=== PATIENT | male | born 1950 | race Caucasian/White ===

== ENCOUNTER 2019-11-27 16:28 | Inpatient (IN) ==
[2019-11-27] MEDS: VANCOMYCIN IV *PREMIX 1 G/200 ML BAG 1 G/200 ML PIGGYBACK IV SCH (20:19)
[2019-11-27 20:39] LABS: BASOPHILS % (AUTO) 0.2 % (0.2-1.0); EOSINOPHILS # (AUTO) 0.1 x10^3/uL (0.0-0.2); EOSINOPHILS % (AUTO) 0.9 % (0.9-2.9); HEMATOCRIT 41.3 % (42.0-54.0); HEMOGLOBIN 14.2 g/dL (13.5-18.0); LYMPHOCYTES # (AUTO) 1.1 X10^3/uL (1.3-2.9); LYMPHOCYTES % (AUTO) 10.9 % (21.0-51.0); MEAN CORPUSCULAR HEMOGLOBIN 28.5 pg (27.0-34.0); MEAN CORPUSCULAR HGB CONC 34.3 g/dL (33.0-35.0); MEAN CORPUSCULAR VOLUME 83.1 fL (80.0-100.0); MEAN PLATELET VOLUME 7.7 fL (7.4-11.0); MONOCYTES # (AUTO) 0.9 x10^3/uL (0.3-0.8); MONOCYTES % (AUTO) 8.6 % (0.0-13.0); NEUTROPHILS # (AUTO) 7.9 x10^3/uL (2.2-4.8); NEUTROPHILS % (AUTO) 79.4 % (42.0-75.0); PLATELET COUNT 337 X10^3/uL (150.0-450.0); RED BLOOD COUNT 4.97 X10^6/uL (4.7-6.0); RED CELL DISTRIBUTION WIDTH 14.9 % (11.6-16.5); WHITE BLOOD COUNT 9.9 X10^3/uL (3.6-10.0)
[2019-11-27 20:47] LABS: HEMOGLOBIN A1C 6.5 %
[2019-11-27 20:51] LABS: ALANINE AMINOTRANSFERASE 30 Units/L (12-78); ALBUMIN 2.6 g/dL (3.4-5.0); ALKALINE PHOSPHATASE 92 Units/L (46-116); ASPARTATE AMINO TRANSFERASE 23 Units/L (15-37); BLOOD UREA NITROGEN 9 mg/dL (7-18); CALCIUM 9.4 mg/dL (8.5-10.1); CARBON DIOXIDE 30.3 mmol/L (21-32); CHLORIDE 98 mmol/L (98-107); COR CA(FOR HYPOALB) 10.5 mg/dL (8.5-10.1); COR NA(FOR HYPERGLY) 139 mmol/L (136-145); CREATININE 1.38 mg/dL (0.70-1.30); SODIUM 137 mmol/L (136-145); TOTAL PROTEIN 7.6 g/dL (6.4-8.2); eGFR NON BLACK RACES 54 (>60)
[2019-11-27 21:15] VITALS: BMI 28.2
[2019-11-27] MEDS ORDERED: MAGNESIUM SULFATE 1 GRAM/100 mL PREMIX 1 GM/100 ML BAG IV PRN (21:27)
[2019-11-27] MEDS ORDERED: K-RIDER 10 MEQ/NS 100 ML 10 MEQ/100 ML BAG IV PRN (21:27)
[2019-11-27] MEDS ORDERED: POTASSIUM CHL 40 MEQ/NS 0.45% 500 ML IV PRN (21:27)
[2019-11-27] MEDS ORDERED: MICRO K EXTEN CAP 10 MEQ PO PRN (21:27)
[2019-11-27] MEDS ORDERED: KLOR-CON PO PRN (21:27)
[2019-11-27] MEDS ORDERED: POTASSIUM CHL 60 MEQ/NS 0.45% 500 ML IV PRN (21:27)
[2019-11-27] MEDS ORDERED: POTASSIUM CHLORIDE LIQ 20 MEQ UDC PO PRN (21:27)
[2019-11-27] MEDS: K-DUR TAB 20 MEQ PO PRN (22:20)
--- NOTE | 2019-11-27 23:10 | RAD ---
STUDY: FRONTAL VIEW CHESTCOMPARISON: NoneHISTORY: BUG BITE 5 DAYS AGO, STATES WORSENING PAIN, SWELLING AND REDNESSFINDINGS:There is elevation of the right hemidiaphragm.No focal consolidation is seen.The heart size is within normal limits.The mediastinum is unremarkable.There is no evidence of pleural effusion or gross pneumothorax.The trachea is midline.IMPRESSION:1. No focal consolidation is seen.2. The heart size is normal.Electronically signed by: Chaitanya Campbell (Nov 27, 2019 23:09:31)
[2019-11-28 06:25] LABS: BASOPHILS % (AUTO) 0.4 % (0.2-1.0); EOSINOPHILS # (AUTO) 0.1 x10^3/uL (0.0-0.2); EOSINOPHILS % (AUTO) 1.4 % (0.9-2.9); HEMATOCRIT 34.7 % (42.0-54.0); HEMOGLOBIN 12.2 g/dL (13.5-18.0); LYMPHOCYTES # (AUTO) 1.1 X10^3/uL (1.3-2.9); MEAN CORPUSCULAR HEMOGLOBIN 28.8 pg (27.0-34.0); MEAN CORPUSCULAR HGB CONC 35.1 g/dL (33.0-35.0); MEAN CORPUSCULAR VOLUME 82.1 fL (80.0-100.0); MEAN PLATELET VOLUME 7.4 fL (7.4-11.0); MONOCYTES # (AUTO) 1.1 x10^3/uL (0.3-0.8); MONOCYTES % (AUTO) 12.1 % (0.0-13.0); NEUTROPHILS # (AUTO) 6.8 x10^3/uL (2.2-4.8); NEUTROPHILS % (AUTO) 74.1 % (42.0-75.0); PLATELET COUNT 347 X10^3/uL (150.0-450.0); RED BLOOD COUNT 4.22 X10^6/uL (4.7-6.0); RED CELL DISTRIBUTION WIDTH 14.8 % (11.6-16.5); WHITE BLOOD COUNT 9.1 X10^3/uL (3.6-10.0)
[2019-11-28 06:41] LABS: ALANINE AMINOTRANSFERASE 28 Units/L (12-78); ALBUMIN 2.2 g/dL (3.4-5.0); ALKALINE PHOSPHATASE 78 Units/L (46-116); ASPARTATE AMINO TRANSFERASE 20 Units/L (15-37); BLOOD UREA NITROGEN 10 mg/dL (7-18); CALCIUM 9.2 mg/dL (8.5-10.1); CARBON DIOXIDE 28.1 mmol/L (21-32); CHLORIDE 102 mmol/L (98-107); COR CA(FOR HYPOALB) 10.6 mg/dL (8.5-10.1); COR NA(FOR HYPERGLY) 139 mmol/L (136-145); CREATININE 1.23 mg/dL (0.70-1.30); SODIUM 138 mmol/L (136-145); TOTAL PROTEIN 6.9 g/dL (6.4-8.2); eGFR NON BLACK RACES > 60 (>60)
[2019-11-28] MEDS ORDERED: LR 1000 ML IV 1,000 ML IV ONE (09:15)
[2019-11-28] MEDS ORDERED: FENTANYL INJ 100 mcg ONE (09:24)
[2019-11-28] MEDS ORDERED: POLYMYXIN B SULFATE ONE (09:46)
[2019-11-28] MEDS ORDERED: BACITRACIN ZINC ONE ×2 (10:06→10:09)
[2019-11-28] MEDS ORDERED: ZOFRAN INJ 4 MG VIAL IVP PRN (10:27)
[2019-11-28] MEDS ORDERED: PHENERGAN INJ 25 MG IM PRN (10:27)
[2019-11-28] MEDS ORDERED: REGLAN INJ 10 MG VIAL IVP PRN (10:27)
[2019-11-28] MEDS ORDERED: BENADRYL INJ 50 MG VIAL IVP PRN (10:27)
[2019-11-28] MEDS ORDERED: DILAUDID INJ IVP PRN (10:27)
--- NOTE | 2019-11-28 10:54 | OR.IMMED ---
Immediate Post-Op Note - Immediate Post-Op Note Pre-Op Diagnosis: cellulitis Lt hand with multiple abscesses. DM Post-Op Diagnosis: cellulitis Lt hand with multiple abscesses on the dorsal aspect extending to the fingers with necrosis . Procedure: debridement and drainage of Lt hand abscesses and skin necrosis . Surgeon/Residential Designer: Geno Specimens Removed: necrotic tissue Lt hand . Complications: none Condition: Stable (multiple tracts were packed with Iodoform . to keep the hand elevated all the times using sling .)
[2019-11-28] MEDS ORDERED: DIPRIVAN VIAL ONE (11:04)
[2019-11-28] MEDS ORDERED: XYLOCAINE 1 % (PLAIN) ONE (11:04)
[2019-11-28] MEDS ORDERED: VERSED ONE (11:04)
[2019-11-28] MEDS ORDERED: ZOFRAN INJ 4 MG VIAL ONE (11:04)
[2019-11-28] MEDS ORDERED: SUPRANE ONE (11:04)
--- NOTE | 2019-11-28 11:44 | DR.H&P ---
H&P History & Physical for Day of: H&P Date: 11/28/19 Chief Complaint Chief Complaint: Left hand insect bite and cellulitis Allergies Allergies Allergy/AdvReac Type Severity Reaction Status Date / Time No Known Drug Allergies Allergy Verified 11/24/19 06:23 History of Present Illness History of Present Illness: Pt is a 69 y/o m pmhx DMT2, GERD, admitted after fischer ving insect bite/sting(possible spider) on left hand that developed into cellulitis and multiple abscesses. This occurred 1 week(s) ago at work. The patient was previously evaluated by a primary physician. Pt has been prescribed by previous providers ED physician and pcp([facility]) antibiotics, cefdinir, bactrim, and clindamycin without improvement of bite wound, failing outpt treatment. On exam copious purulent drainage and referred to [facility] Surgery-Dr Lora. He was admitted, started on Vancomycin, and had debridement of wound this morning w/ cultures sent. Consulted for medical management. Past Medical History Past Medical History: Diabetes and GERD Past Surgical History Surgical History: Other Family History Family Medical History: Diabetes Mellitus and ID Social History Does patient currently use any type of tobacco product: No Have you used tobacco products in the last 12 months: No Type of Tobacco Use: None Does any household member use tobacco: No Alcohol Use: Rarely Drug Use: None Medications Home Medications: No Known Drug Allergies Allergy (Verified 11/24/19 06:23) CONTINUE taking the following medications acetaminophen-codeine 1 tab PO PRN PRN 11/27/19 [History] ascorbic acid (vitamin C) [Vitamin C] 500 mg PO DAILY 11/27/19 [History] cholecalciferol (vitamin D3) [Vitamin D3] 1 unit PO DAILY 11/27/19 [History] mupirocin 1 applic TOPICAL BID 11/27/19 [History] omega 2-tpa-wki-fish oil [Fish Oil] 1 cap PO DAILY 11/27/19 [History] Labs Result Diagrams: 11/28/19 05:37 11/28/19 05:37 Labs: 11/27/19 21:15 Hand - Left Gram Stain - Final 11/27/19 21:15 Hand - Left Wound Culture - Preliminary Laboratory WBC 9.1 X10^3/uL (3.6-10.0) 11/28/19 05:37 RBC 4.22 X10^6/uL (4.7-6.0) L 11/28/19 05:37 Hgb 12.2 g/dL (13.5-18.0) L D 11/28/19 05:37 Hct 34.7 % (42.0-54.0) L 11/28/19 05:37 MCV 82.1 fL (80.0-100.0) 11/28/19 05:37 MCH 28.8 pg (27.0-34.0) 11/28/19 05:37 MCHC 35.1 g/dL (33.0-35.0) H 11/28/19 05:37 RDW 14.8 % (11.6-16.5) 11/28/19 05:37 Plt Count 347 X10^3/uL (150.0-450.0) 11/28/19 05:37 MPV 7.4 fL (7.4-11.0) 11/28/19 05:37 Neut % (Auto) 74.1 % (42.0-75.0) 11/28/19 05:37 Lymph % (Auto) 12.0 % (21.0-51.0) L 11/28/19 05:37 [place] % (Auto) 12.1 % (0.0-13.0) 11/28/19 05:37 Eos % (Auto) 1.4 % (0.9-2.9) 11/28/19 05:37 Baso % (Auto) 0.4 % (0.2-1.0) 11/28/19 05:37 Neut # (Auto) 6.8 x10^3/uL (2.2-4.8) H 11/28/19 05:37 Lymph # (Auto) 1.1 X10^3/uL (1.3-2.9) L 11/28/19 05:37 [place] # (Auto) 1.1 x10^3/uL (0.3-0.8) H 11/28/19 05:37 Eos # (Auto) 0.1 x10^3/uL (0.0-0.2) 11/28/19 05:37 Baso # (Auto) 0.0 X10^3/uL (0.0-0.1) 11/28/19 05:37 Absolute Nucleated RBC 0.0 /100WBC 11/28/19 05:37 Sodium 138 mmol/L (136-145) 11/28/19 05:37 Corrected Sodium 139 mmol/L (136-145) 11/28/19 05:37 Potassium 3.6 mmol/L (3.5-5.1) 11/28/19 05:37 Chloride 102 mmol/L (98-107) 11/28/19 05:37 Carbon Dioxide 28.1 mmol/L (21-32) 11/28/19 05:37 BUN 10 mg/dL (7-18) 11/28/19 05:37 Creatinine 1.23 mg/dL (0.70-1.30) 11/28/19 05:37 Est GFR (MDRD) Af Amer > 60 (>60) 11/28/19 05:37 Est GFR (MDRD) Non-Af > 60 (>60) 11/28/19 05:37 Glucose 161 mg/dL (65-99) H 11/28/19 05:37 POC Glucose (mg/dL) 162 mg/dL (65-99) H 11/28/19 05:28 Hemoglobin A1c 6.5 % 11/27/19 19:57 Calcium 9.2 mg/dL (8.5-10.1) 11/28/19 05:37 Corrected Calcium 10.6 mg/dL (8.5-10.1) H 11/28/19 05:37 Magnesium 2.0 mg/dL (1.7-2.9) 11/27/19 19:57 Total Bilirubin 0.50 mg/dL (0.2-1.0) 11/28/19 05:37 AST 20 Units/L (15-37) 11/28/19 05:37 ALT 28 Units/L (12-78) 11/28/19 05:37 Alkaline Phosphatase 78 Units/L (46-116) 11/28/19 05:37 Total Protein 6.9 g/dL (6.4-8.2) 11/28/19 05:37 Albumin 2.2 g/dL (3.4-5.0) L 11/28/19 05:37 Globulin 4.7 g/dL (2.5-4.5) H 11/28/19 05:37 Albumin/Globulin Ratio 0.5 Ratio (1.1-2.1) L 11/28/19 05:37 Tissue Pathology To follow 11/28/19 10:53 Review of Systems Constitutional: denies Fever and Chills Eyes: No Symptoms Reported ENT: No Symptoms Reported Respiratory: No Symptoms Reported Cardiovascular: No Symptoms Reported Gastrointestinal: No Symptoms Reported Genitourinary: No Symptoms Reported Musculoskeletal: Hand Pain (Left) Skin: Wound (Left hand:Erythematous, Edema, tenderness, copious purulent discharge ) Neurological: No Symptoms Reported Physical Exam Vital Signs: Temperature 97.7 F Pulse Rate [Right Radial] 88 Pulse Rate 70 Respiratory Rate 18 Blood Pressure [Right Arm] 141/79 Blood Pressure 153/86 O2 Sat by Pulse Oximetry 97 Oriented: Normal Eyes: Normal Ear: Normal Respiratory: Clear Throughout Cardiovascular: Normal Auscultation: Bowel Sounds: Normal Palpation: Normal Tenderness: Normal Skin: Wound (Left hand:Erythematous, Edema, tenderness, copious purulent discharge ) Musculoskeletal: Hand (Left hand) Psychiatric: Normal Speech Pattern: Clear Assessment/Plan (1) Cellulitis of hand, left: Status: Acute Plan: S/p debridement (11/27) Continue IV Vancomycin (2) Type 2 diabetes mellitus: Status: Acute Plan: Restart home metformin Review H&P Reviewed: Yes Patient was examined?: Yes
[2019-11-28] MEDS ORDERED: NS 250 ML IV 250 ML IV ONE (12:21)
[2019-11-28] MEDS: K-DUR TAB 20 MEQ PO PRN (12:32)
[2019-11-28] MEDS: VANCOMYCIN IV *PREMIX 1 G/200 ML BAG 1 G/200 ML PIGGYBACK IV SCH ×2 (12:32→20:56)
[2019-11-28] MEDS: PERCOCET TAB 5/325 MG PO PRN ×2 (16:24→21:25)
[2019-11-29 06:38] LABS: BASOPHILS % (AUTO) 0.5 % (0.2-1.0); EOSINOPHILS # (AUTO) 0.2 x10^3/uL (0.0-0.2); EOSINOPHILS % (AUTO) 1.9 % (0.9-2.9); HEMATOCRIT 38.5 % (42.0-54.0); HEMOGLOBIN 13.2 g/dL (13.5-18.0); LYMPHOCYTES # (AUTO) 1.2 X10^3/uL (1.3-2.9); LYMPHOCYTES % (AUTO) 15.8 % (21.0-51.0); MEAN CORPUSCULAR HEMOGLOBIN 28.3 pg (27.0-34.0); MEAN CORPUSCULAR HGB CONC 34.3 g/dL (33.0-35.0); MEAN CORPUSCULAR VOLUME 82.7 fL (80.0-100.0); MEAN PLATELET VOLUME 7.4 fL (7.4-11.0); MONOCYTES # (AUTO) 0.9 x10^3/uL (0.3-0.8); MONOCYTES % (AUTO) 11.2 % (0.0-13.0); NEUTROPHILS # (AUTO) 5.6 x10^3/uL (2.2-4.8); NEUTROPHILS % (AUTO) 70.6 % (42.0-75.0); PLATELET COUNT 328 X10^3/uL (150.0-450.0); RED BLOOD COUNT 4.66 X10^6/uL (4.7-6.0); RED CELL DISTRIBUTION WIDTH 14.8 % (11.6-16.5); WHITE BLOOD COUNT 7.9 X10^3/uL (3.6-10.0)
[2019-11-29 06:46] LABS: BLOOD UREA NITROGEN 12 mg/dL (7-18); CARBON DIOXIDE 26.6 mmol/L (21-32); CHLORIDE 103 mmol/L (98-107); COR NA(FOR HYPERGLY) 138 mmol/L (136-145); CREATININE 1.12 mg/dL (0.70-1.30); SODIUM 137 mmol/L (136-145); eGFR NON BLACK RACES > 60 (>60)
[2019-11-29] MEDS ORDERED: GLUCOPHAGE ONE (07:45)
[2019-11-29] MEDS: VANCOMYCIN IV *PREMIX 1 G/200 ML BAG 1 G/200 ML PIGGYBACK IV SCH (08:00)
[2019-11-29] MEDS: PERCOCET TAB 5/325 MG PO PRN ×3 (08:00→20:09)
[2019-11-29] MEDS: GLUCOPHAGE PO SCH (08:00)
[2019-11-29] MEDS: PriLOSEC PO SCH (08:00)
[2019-11-29] MEDS ORDERED: PHARMACY COMMENT IV NR (08:30)
--- NOTE | 2019-11-29 10:38 | PCM.PROG ---
Progress Note Progress Note for Day of Date of Exam: 11/29/19 Subjective Subjective: Pt is a 69 y/o m pmhx DMT2, GERD, admitted for left hand cellulitis and debridement. He is feeling better this morning. His hand is wrapped in a wound dressing. Gen Surg will see him this morning. Labs/imaging: Wbc 7.9, Hgb 13.2, Plt 328, Na 137, K 3.9, Cr 1.12, Gluc 142. A1c 6.4. Wound Culture +MRSA. Will continue IV Vancomycin. Continue to monitor and follow up labs in the morning. Past Medical Family Social History Past Med/Fam/Surg Hx: No changes since H&P Allergies: Allergies No Known Drug Allergies Allergy (Verified 11/24/19 06:23) Review of Systems ROS: No change since H&P Vital Signs and I&O's Vital Signs: Temperature 99.1 F Pulse Rate [Right Radial] 78 Pulse Rate 70 Respiratory Rate 20 Blood Pressure [Right Arm] 117/75 Blood Pressure 153/86 O2 Sat by Pulse Oximetry 97 Intake and Output: Intake & Output 11/26/19 11/27/19 11/28/19 11/29/19 23:59 23:59 23:59 23:59 Intake Total 1202 / 1202 1470 / 1470 840 / 840 Output Total 245 / 245 Balance 1202 / 1202 1225 / 1225 840 / 840 Physical Exam Oriented: Normal Eyes: Normal Ear: Normal Cardiovascular: Normal Auscultation: Bowel Sounds: Normal Tenderness: Normal Skin: Wound (Left hand wrapped in wound dressing) Musculoskeletal: Hand (Left hand) Psychiatric: Normal Mood Description: Calm Speech Pattern: Clear and Appropriate Laboratory and Diagnostics Result Diagrams: 11/29/19 05:15 11/29/19 05:15 Labs: 11/27/19 21:15 Hand - Left Gram Stain - Final 11/27/19 21:15 Hand - Left Wound Culture - Final Methicillin Resis Staph Aureus Laboratory WBC 7.9 X10^3/uL (3.6-10.0) 11/29/19 05:15 RBC 4.66 X10^6/uL (4.7-6.0) L 11/29/19 05:15 Hgb 13.2 g/dL (13.5-18.0) L 11/29/19 05:15 Hct 38.5 % (42.0-54.0) L 11/29/19 05:15 MCV 82.7 fL (80.0-100.0) 11/29/19 05:15 MCH 28.3 pg (27.0-34.0) 11/29/19 05:15 MCHC 34.3 g/dL (33.0-35.0) 11/29/19 05:15 RDW 14.8 % (11.6-16.5) 11/29/19 05:15 Plt Count 328 X10^3/uL (150.0-450.0) 11/29/19 05:15 MPV 7.4 fL (7.4-11.0) 11/29/19 05:15 Neut % (Auto) 70.6 % (42.0-75.0) 11/29/19 05:15 Lymph % (Auto) 15.8 % (21.0-51.0) L 11/29/19 05:15 [place] % (Auto) 11.2 % (0.0-13.0) 11/29/19 05:15 Eos % (Auto) 1.9 % (0.9-2.9) 11/29/19 05:15 Baso % (Auto) 0.5 % (0.2-1.0) 11/29/19 05:15 Neut # (Auto) 5.6 x10^3/uL (2.2-4.8) H 11/29/19 05:15 Lymph # (Auto) 1.2 X10^3/uL (1.3-2.9) L 11/29/19 05:15 [place] # (Auto) 0.9 x10^3/uL (0.3-0.8) H 11/29/19 05:15 Eos # (Auto) 0.2 x10^3/uL (0.0-0.2) 11/29/19 05:15 Baso # (Auto) 0.0 X10^3/uL (0.0-0.1) 11/29/19 05:15 Absolute Nucleated RBC 0.0 /100WBC 11/29/19 05:15 Sodium 137 mmol/L (136-145) 11/29/19 05:15 Corrected Sodium 138 mmol/L (136-145) 11/29/19 05:15 Potassium 3.9 mmol/L (3.5-5.1) 11/29/19 05:15 Chloride 103 mmol/L (98-107) 11/29/19 05:15 Carbon Dioxide 26.6 mmol/L (21-32) 11/29/19 05:15 BUN 12 mg/dL (7-18) 11/29/19 05:15 Creatinine 1.12 mg/dL (0.70-1.30) 11/29/19 05:15 Est GFR (MDRD) Af Amer > 60 (>60) 11/29/19 05:15 Est GFR (MDRD) Non-Af > 60 (>60) 11/29/19 05:15 Glucose 142 mg/dL (65-99) H 11/29/19 05:15 POC Glucose (mg/dL) 152 mg/dL (65-99) H 11/29/19 06:01 Hemoglobin A1c 6.4 % 11/28/19 05:37 Calcium 9.0 mg/dL (8.5-10.1) 11/29/19 05:15 Corrected Calcium 10.6 mg/dL (8.5-10.1) H 11/28/19 05:37 Magnesium 2.0 mg/dL (1.7-2.9) 11/27/19 19:57 Total Bilirubin 0.50 mg/dL (0.2-1.0) 11/28/19 05:37 AST 20 Units/L (15-37) 11/28/19 05:37 ALT 28 Units/L (12-78) 11/28/19 05:37 Alkaline Phosphatase 78 Units/L (46-116) 11/28/19 05:37 Total Protein 6.9 g/dL (6.4-8.2) 11/28/19 05:37 Albumin 2.2 g/dL (3.4-5.0) L 11/28/19 05:37 Globulin 4.7 g/dL (2.5-4.5) H 11/28/19 05:37 Albumin/Globulin Ratio 0.5 Ratio (1.1-2.1) L 11/28/19 05:37 Tissue Pathology To follow 11/28/19 10:53 Plan (1) Cellulitis of hand, left: Status: Acute Plan: S/p debridement (4/24) Wound Culture:+MRSA Continue IV Vancomycin (2) Type 2 diabetes mellitus: Status: Acute Plan: Restart home metformin
--- NOTE | 2019-11-29 18:43 | DR.PROGNOT ---
Hospital Progress Notes - Progress Note for Day of: Progress Note Date: 11/29/19 - Chief Complaint Chief Complaint: moderate pain Lt hand . still having moderate drainage . C&S showed MRSA - Past Medical Family Social History Past Med/Fam/Surg Hx: No changes since H&P Allergies: Allergies No Known Drug Allergies Allergy (Verified 11/24/19 06:23) - Review Of Systems ROS: No change since H&P - Vital Signs Vital Signs: Temperature 98.5 F Pulse Rate [Right Radial] 77 Pulse Rate 70 Respiratory Rate 20 Blood Pressure [Right Arm] 148/76 Blood Pressure 153/86 O2 Sat by Pulse Oximetry 97 - Physical Exam Oriented: Normal Eyes: Normal Ear: Normal Cardiovascular: Normal GI:Auscultation: Normal GI:Palpation: Normal GI: Tenderness: Normal Skin: Wound (less edema and erythema .. intact ROM of all fingers and wrist ) Musculoskeletal: Hand (Left hand) Psychiatric: Normal Mood Description: Calm Speech Pattern: Clear, Appropriate - Laboratory and Diagnostics Result Diagrams: 11/29/19 05:15 11/29/19 05:15 Labs: 11/27/19 21:15 Hand - Left Gram Stain - Final 11/27/19 21:15 Hand - Left Wound Culture - Final Methicillin Resis Staph Aureus Laboratory WBC 7.9 X10^3/uL (3.6-10.0) 11/29/19 05:15 RBC 4.66 X10^6/uL (4.7-6.0) L 11/29/19 05:15 Hgb 13.2 g/dL (13.5-18.0) L 11/29/19 05:15 Hct 38.5 % (42.0-54.0) L 11/29/19 05:15 MCV 82.7 fL (80.0-100.0) 11/29/19 05:15 MCH 28.3 pg (27.0-34.0) 11/29/19 05:15 MCHC 34.3 g/dL (33.0-35.0) 11/29/19 05:15 RDW 14.8 % (11.6-16.5) 11/29/19 05:15 Plt Count 328 X10^3/uL (150.0-450.0) 11/29/19 05:15 MPV 7.4 fL (7.4-11.0) 11/29/19 05:15 Neut % (Auto) 70.6 % (42.0-75.0) 11/29/19 05:15 Lymph % (Auto) 15.8 % (21.0-51.0) L 11/29/19 05:15 [place] % (Auto) 11.2 % (0.0-13.0) 11/29/19 05:15 Eos % (Auto) 1.9 % (0.9-2.9) 11/29/19 05:15 Baso % (Auto) 0.5 % (0.2-1.0) 11/29/19 05:15 Neut # (Auto) 5.6 x10^3/uL (2.2-4.8) H 11/29/19 05:15 Lymph # (Auto) 1.2 X10^3/uL (1.3-2.9) L 11/29/19 05:15 [place] # (Auto) 0.9 x10^3/uL (0.3-0.8) H 11/29/19 05:15 Eos # (Auto) 0.2 x10^3/uL (0.0-0.2) 11/29/19 05:15 Baso # (Auto) 0.0 X10^3/uL (0.0-0.1) 11/29/19 05:15 Absolute Nucleated RBC 0.0 /100WBC 11/29/19 05:15 Sodium 137 mmol/L (136-145) 11/29/19 05:15 Corrected Sodium 138 mmol/L (136-145) 11/29/19 05:15 Potassium 3.9 mmol/L (3.5-5.1) 11/29/19 05:15 Chloride 103 mmol/L (98-107) 11/29/19 05:15 Carbon Dioxide 26.6 mmol/L (21-32) 11/29/19 05:15 BUN 12 mg/dL (7-18) 11/29/19 05:15 Creatinine 1.12 mg/dL (0.70-1.30) 11/29/19 05:15 Est GFR (MDRD) Af Amer > 60 (>60) 11/29/19 05:15 Est GFR (MDRD) Non-Af > 60 (>60) 11/29/19 05:15 Glucose 142 mg/dL (65-99) H 11/29/19 05:15 POC Glucose (mg/dL) 139 mg/dL (65-99) H 11/29/19 16:31 Hemoglobin A1c 6.4 % 11/28/19 05:37 Calcium 9.0 mg/dL (8.5-10.1) 11/29/19 05:15 Corrected Calcium 10.6 mg/dL (8.5-10.1) H 11/28/19 05:37 Magnesium 2.0 mg/dL (1.7-2.9) 11/27/19 19:57 Total Bilirubin 0.50 mg/dL (0.2-1.0) 11/28/19 05:37 AST 20 Units/L (15-37) 11/28/19 05:37 ALT 28 Units/L (12-78) 11/28/19 05:37 Alkaline Phosphatase 78 Units/L (46-116) 11/28/19 05:37 Total Protein 6.9 g/dL (6.4-8.2) 11/28/19 05:37 Albumin 2.2 g/dL (3.4-5.0) L 11/28/19 05:37 Globulin 4.7 g/dL (2.5-4.5) H 11/28/19 05:37 Albumin/Globulin Ratio 0.5 Ratio (1.1-2.1) L 11/28/19 05:37 Tissue Pathology To follow 11/28/19 10:53 - Assessment and Plan 1: multiple Lt hand abscesses positive for MRSA .. S/P debridement and drainage with packing . DM . same IV Vancomycine and local care .. hand elevation . - Problem Patient Problems: Patient Problems Type 2 diabetes mellitus (Acute) E11.9 Cellulitis of hand, left (Acute) L03.114
[2019-11-29 21:00] LABS: CREATININE 1.1 mg/dL (0.70-1.30); VANCOMYCIN,TROUGH 6.1 ug/mL (15-20)
[2019-11-29] MEDS ORDERED: PHARMACY CONSULT - VANCOMYCIN XX SCH (21:00)
[2019-11-29] MEDS ORDERED: VANCOMYCIN HCL ONE ×2 (22:05)
[2019-11-29] MEDS ORDERED: D5W 250 ML IV 250 ML IV ONE (22:05)
[2019-11-29] MEDS: VANCOMYCIN HCL 250 MG, VANCOMYCIN HCL 1 G in D5W 250 ML IV 250 ML IV SCH (22:20)
[2019-11-30] MEDS: PERCOCET TAB 5/325 MG PO PRN ×6 (05:59→21:45)
[2019-11-30 06:03] LABS: BASOPHILS # (AUTO) 0.1 X10^3/uL (0.0-0.1); BASOPHILS % (AUTO) 0.9 % (0.2-1.0); EOSINOPHILS # (AUTO) 0.2 x10^3/uL (0.0-0.2); EOSINOPHILS % (AUTO) 2.8 % (0.9-2.9); HEMATOCRIT 38.8 % (42.0-54.0); HEMOGLOBIN 13.4 g/dL (13.5-18.0); LYMPHOCYTES # (AUTO) 1.7 X10^3/uL (1.3-2.9); LYMPHOCYTES % (AUTO) 23.6 % (21.0-51.0); MEAN CORPUSCULAR HEMOGLOBIN 28.5 pg (27.0-34.0); MEAN CORPUSCULAR HGB CONC 34.5 g/dL (33.0-35.0); MEAN CORPUSCULAR VOLUME 82.8 fL (80.0-100.0); MEAN PLATELET VOLUME 7.3 fL (7.4-11.0); MONOCYTES # (AUTO) 0.8 x10^3/uL (0.3-0.8); MONOCYTES % (AUTO) 10.2 % (0.0-13.0); NEUTROPHILS # (AUTO) 4.6 x10^3/uL (2.2-4.8); NEUTROPHILS % (AUTO) 62.5 % (42.0-75.0); PLATELET COUNT 351 X10^3/uL (150.0-450.0); RED BLOOD COUNT 4.68 X10^6/uL (4.7-6.0); RED CELL DISTRIBUTION WIDTH 14.7 % (11.6-16.5); WHITE BLOOD COUNT 7.4 X10^3/uL (3.6-10.0)
[2019-11-30 06:23] LABS: BLOOD UREA NITROGEN 14 mg/dL (7-18); CARBON DIOXIDE 25.4 mmol/L (21-32); CHLORIDE 103 mmol/L (98-107); COR NA(FOR HYPERGLY) 137 mmol/L (136-145); SODIUM 136 mmol/L (136-145); eGFR NON BLACK RACES > 60 (>60)
[2019-11-30] MEDS ORDERED: GLUCOPHAGE ONE (08:38)
[2019-11-30] MEDS: PriLOSEC PO SCH (09:04)
[2019-11-30] MEDS: GLUCOPHAGE PO SCH (09:05)
[2019-11-30] MEDS ORDERED: VANCOMYCIN HCL ONE ×2 (09:59→10:00)
[2019-11-30] MEDS ORDERED: NS 250 ML IV 250 ML IV ONE (09:59)
[2019-11-30] MEDS: VANCOMYCIN HCL 250 MG, VANCOMYCIN HCL 1 G in D5W 250 ML IV 250 ML IV SCH ×2 (10:20→21:33)
--- NOTE | 2019-11-30 10:45 | PCM.PROG ---
Progress Note Progress Note for Day of Date of Exam: 11/30/19 Subjective Subjective: Pt is a 69 y/o m pmhx DMT2, GERD, admitted for left hand cellulitis and debridement. He doing well this morning. His hand is wrapped in a wound dressing. Gen Surg changed outer layer of wound dressing yesterday. Labs/imaging: Wbc 7.4, Hgb 13.4, Plt 351, Na 136, K 3.9, Cr 1.00, Gluc 136. A1c 6.4. Wound Culture +MRSA. Continue IV Vancomycin. Continue to monitor and follow up labs in the morning. Past Medical Family Social History Past Med/Fam/Surg Hx: No changes since H&P Allergies: Allergies No Known Drug Allergies Allergy (Verified 11/24/19 06:23) Review of Systems ROS: No change since H&P Vital Signs and I&O's Vital Signs: Temperature 98.4 F Pulse Rate [Right Radial] 70 Pulse Rate 70 Respiratory Rate 17 Blood Pressure [Right Arm] 135/73 Blood Pressure 153/86 O2 Sat by Pulse Oximetry 96 Intake and Output: Intake & Output 11/27/19 11/28/19 11/29/19 11/30/19 23:59 23:59 23:59 23:59 Intake Total 1202 / 1202 1470 / 1470 2330 / 2330 130 / 130 Output Total 245 / 245 Balance 1202 / 1202 1225 / 1225 2330 / 2330 130 / 130 Physical Exam Oriented: Normal Eyes: Normal Ear: Normal Cardiovascular: Normal Auscultation: Bowel Sounds: Normal Tenderness: Normal Skin: Wound (less edema and erythema .. intact ROM of all fingers and wrist ) Musculoskeletal: Hand (Left hand) Psychiatric: Normal Mood Description: Calm Speech Pattern: Clear and Appropriate Laboratory and Diagnostics Result Diagrams: 11/30/19 03:47 11/30/19 03:47 Labs: 11/27/19 21:15 Hand - Left Gram Stain - Final 11/27/19 21:15 Hand - Left Wound Culture - Final Methicillin Resis Staph Aureus Laboratory WBC 7.4 X10^3/uL (3.6-10.0) 11/30/19 03:47 RBC 4.68 X10^6/uL (4.7-6.0) L 11/30/19 03:47 Hgb 13.4 g/dL (13.5-18.0) L 11/30/19 03:47 Hct 38.8 % (42.0-54.0) L 11/30/19 03:47 MCV 82.8 fL (80.0-100.0) 11/30/19 03:47 MCH 28.5 pg (27.0-34.0) 11/30/19 03:47 MCHC 34.5 g/dL (33.0-35.0) 11/30/19 03:47 RDW 14.7 % (11.6-16.5) 11/30/19 03:47 Plt Count 351 X10^3/uL (150.0-450.0) 11/30/19 03:47 MPV 7.3 fL (7.4-11.0) L 11/30/19 03:47 Neut % (Auto) 62.5 % (42.0-75.0) 11/30/19 03:47 Lymph % (Auto) 23.6 % (21.0-51.0) 11/30/19 03:47 [place] % (Auto) 10.2 % (0.0-13.0) 11/30/19 03:47 Eos % (Auto) 2.8 % (0.9-2.9) 11/30/19 03:47 Baso % (Auto) 0.9 % (0.2-1.0) 11/30/19 03:47 Neut # (Auto) 4.6 x10^3/uL (2.2-4.8) 11/30/19 03:47 Lymph # (Auto) 1.7 X10^3/uL (1.3-2.9) 11/30/19 03:47 [place] # (Auto) 0.8 x10^3/uL (0.3-0.8) 11/30/19 03:47 Eos # (Auto) 0.2 x10^3/uL (0.0-0.2) 11/30/19 03:47 Baso # (Auto) 0.1 X10^3/uL (0.0-0.1) 11/30/19 03:47 Absolute Nucleated RBC 0.0 /100WBC 11/30/19 03:47 Sodium 136 mmol/L (136-145) 11/30/19 03:47 Corrected Sodium 137 mmol/L (136-145) 11/30/19 03:47 Potassium 3.9 mmol/L (3.5-5.1) 11/30/19 03:47 Chloride 103 mmol/L (98-107) 11/30/19 03:47 Carbon Dioxide 25.4 mmol/L (21-32) 11/30/19 03:47 BUN 14 mg/dL (7-18) 11/30/19 03:47 Creatinine 1.00 mg/dL (0.70-1.30) 11/30/19 03:47 Est GFR (MDRD) Af Amer > 60 (>60) 11/30/19 03:47 Est GFR (MDRD) Non-Af > 60 (>60) 11/30/19 03:47 Glucose 131 mg/dL (65-99) H 11/30/19 03:47 POC Glucose (mg/dL) 128 mg/dL (65-99) H 11/30/19 05:25 Hemoglobin A1c 6.4 % 11/28/19 05:37 Calcium 9.0 mg/dL (8.5-10.1) 11/30/19 03:47 Corrected Calcium 10.6 mg/dL (8.5-10.1) H 11/28/19 05:37 Magnesium 2.0 mg/dL (1.7-2.9) 11/27/19 19:57 Total Bilirubin 0.50 mg/dL (0.2-1.0) 11/28/19 05:37 AST 20 Units/L (15-37) 11/28/19 05:37 ALT 28 Units/L (12-78) 11/28/19 05:37 Alkaline Phosphatase 78 Units/L (46-116) 11/28/19 05:37 Total Protein 6.9 g/dL (6.4-8.2) 11/28/19 05:37 Albumin 2.2 g/dL (3.4-5.0) L 11/28/19 05:37 Globulin 4.7 g/dL (2.5-4.5) H 11/28/19 05:37 Albumin/Globulin Ratio 0.5 Ratio (1.1-2.1) L 11/28/19 05:37 Vancomycin Trough 6.1 ug/mL (15-20) L 11/29/19 20:34 Tissue Pathology To follow 11/28/19 10:53 Plan (1) Cellulitis of hand, left: Status: Acute Plan: S/p debridement (11/27) Wound Culture:+MRSA IV Vancomycin (2) Type 2 diabetes mellitus: Status: Acute Plan: Meds:Metformin A1c:6.4
[2019-12-01] MEDS ORDERED: NS 250 ML IV 250 ML IV ONE (04:50)
[2019-12-01 05:48] LABS: BASOPHILS # (AUTO) 0.1 X10^3/uL (0.0-0.1); BASOPHILS % (AUTO) 0.8 % (0.2-1.0); EOSINOPHILS # (AUTO) 0.2 x10^3/uL (0.0-0.2); EOSINOPHILS % (AUTO) 2.5 % (0.9-2.9); HEMATOCRIT 39.3 % (42.0-54.0); HEMOGLOBIN 13.5 g/dL (13.5-18.0); LYMPHOCYTES # (AUTO) 1.7 X10^3/uL (1.3-2.9); MEAN CORPUSCULAR HEMOGLOBIN 28.5 pg (27.0-34.0); MEAN CORPUSCULAR HGB CONC 34.3 g/dL (33.0-35.0); MEAN CORPUSCULAR VOLUME 83.1 fL (80.0-100.0); MEAN PLATELET VOLUME 7.3 fL (7.4-11.0); MONOCYTES # (AUTO) 0.6 x10^3/uL (0.3-0.8); MONOCYTES % (AUTO) 8.5 % (0.0-13.0); NEUTROPHILS # (AUTO) 4.9 x10^3/uL (2.2-4.8); NEUTROPHILS % (AUTO) 65.2 % (42.0-75.0); PLATELET COUNT 382 X10^3/uL (150.0-450.0); RED BLOOD COUNT 4.74 X10^6/uL (4.7-6.0); RED CELL DISTRIBUTION WIDTH 14.8 % (11.6-16.5); WHITE BLOOD COUNT 7.5 X10^3/uL (3.6-10.0)
[2019-12-01 05:59] LABS: BLOOD UREA NITROGEN 14 mg/dL (7-18); CALCIUM 8.9 mg/dL (8.5-10.1); CARBON DIOXIDE 24.3 mmol/L (21-32); CHLORIDE 103 mmol/L (98-107); COR NA(FOR HYPERGLY) 136 mmol/L (136-145); CREATININE 0.94 mg/dL (0.70-1.30); SODIUM 136 mmol/L (136-145); eGFR NON BLACK RACES > 60 (>60)
[2019-12-01] MEDS ORDERED: GLUCOPHAGE ONE (07:42)
[2019-12-01] MEDS ORDERED: PHARMACY COMMENT IV NR (08:30)
[2019-12-01] MEDS: GLUCOPHAGE PO SCH (08:30)
[2019-12-01] MEDS: PERCOCET TAB 5/325 MG PO PRN ×3 (08:30→21:07)
[2019-12-01] MEDS: PriLOSEC PO SCH (08:31)
[2019-12-01] MEDS ORDERED: STERILE WATER IRRIGATION IR ONE (10:52)
[2019-12-01] MEDS ORDERED: HYDROGEN PEROXIDE 3% ONE (10:55)
[2019-12-01] MEDS ORDERED: BACTROBAN CREAM ONE (11:02)
[2019-12-01] MEDS: BACTROBAN CREAM TOP SCH (11:08)
[2019-12-01] MEDS ORDERED: NS IRRIGATION 500 ML IR ONE (11:25)
[2019-12-01] MEDS ORDERED: NS 1000 ML 1,000 ML ONE (11:29)
[2019-12-01] MEDS: HYDROGEN PEROXIDE 3% TOP SCH (11:54)
--- NOTE | 2019-12-01 13:06 | PCM.PROG ---
Progress Note Progress Note for Day of Date of Exam: 12/01/19 Subjective Subjective: Pt is a 69 y/o m pmhx DMT2, GERD, admitted for left hand cellulitis and debridement. He doing well this morning and is anxious about going home. His hand is wrapped in a wound dressing. Gen Surg cleaning wound and dressing changes. Labs/imaging: Wbc 7.5, Hgb 13.5, Plt 382, Na 136, K 3.8, Cr 0.94, Gluc 119. Wound Culture +MRSA. Continue IV Vancomycin. Continue to monitor and follow up surgery recs. Past Medical Family Social History Past Med/Fam/Surg Hx: No changes since H&P Allergies: Allergies No Known Drug Allergies Allergy (Verified 11/24/19 06:23) Review of Systems ROS: No change since H&P Vital Signs and I&O's Vital Signs: Temperature 98.9 F Pulse Rate [Right Radial] 65 Pulse Rate 70 Respiratory Rate 18 Blood Pressure [Right Arm] 134/74 Blood Pressure 153/86 O2 Sat by Pulse Oximetry 97 Intake and Output: Intake & Output 11/28/19 11/29/19 11/30/19 12/01/19 23:59 23:59 23:59 23:59 Intake Total 1470 / 1470 2330 / 2330 1390 / 1390 310 / 310 Output Total 245 / 245 Balance 1225 / 1225 2330 / 2330 1390 / 1390 310 / 310 Physical Exam Oriented: Normal Eyes: Normal Ear: Normal Cardiovascular: Normal Auscultation: Bowel Sounds: Normal Tenderness: Normal Skin: Wound (less edema and erythema .. intact ROM of all fingers and wrist ) Musculoskeletal: Hand (Left hand) Psychiatric: Normal Mood Description: Calm Speech Pattern: Clear and Appropriate Laboratory and Diagnostics Result Diagrams: 12/01/19 03:59 12/01/19 03:59 Labs: 11/27/19 21:15 Hand - Left Gram Stain - Final 11/27/19 21:15 Hand - Left Wound Culture - Final Methicillin Resis Staph Aureus Laboratory WBC 7.5 X10^3/uL (3.6-10.0) 12/01/19 03:59 RBC 4.74 X10^6/uL (4.7-6.0) 12/01/19 03:59 Hgb 13.5 g/dL (13.5-18.0) 12/01/19 03:59 Hct 39.3 % (42.0-54.0) L 12/01/19 03:59 MCV 83.1 fL (80.0-100.0) 12/01/19 03:59 MCH 28.5 pg (27.0-34.0) 12/01/19 03:59 MCHC 34.3 g/dL (33.0-35.0) 12/01/19 03:59 RDW 14.8 % (11.6-16.5) 12/01/19 03:59 Plt Count 382 X10^3/uL (150.0-450.0) 12/01/19 03:59 MPV 7.3 fL (7.4-11.0) L 12/01/19 03:59 Neut % (Auto) 65.2 % (42.0-75.0) 12/01/19 03:59 Lymph % (Auto) 23.0 % (21.0-51.0) 12/01/19 03:59 [place] % (Auto) 8.5 % (0.0-13.0) 12/01/19 03:59 Eos % (Auto) 2.5 % (0.9-2.9) 12/01/19 03:59 Baso % (Auto) 0.8 % (0.2-1.0) 12/01/19 03:59 Neut # (Auto) 4.9 x10^3/uL (2.2-4.8) H 12/01/19 03:59 Lymph # (Auto) 1.7 X10^3/uL (1.3-2.9) 12/01/19 03:59 [place] # (Auto) 0.6 x10^3/uL (0.3-0.8) 12/01/19 03:59 Eos # (Auto) 0.2 x10^3/uL (0.0-0.2) 12/01/19 03:59 Baso # (Auto) 0.1 X10^3/uL (0.0-0.1) 12/01/19 03:59 Absolute Nucleated RBC 0.1 /100WBC 12/01/19 03:59 Sodium 136 mmol/L (136-145) 12/01/19 03:59 Corrected Sodium 136 mmol/L (136-145) 12/01/19 03:59 Potassium 3.8 mmol/L (3.5-5.1) 12/01/19 03:59 Chloride 103 mmol/L (98-107) 12/01/19 03:59 Carbon Dioxide 24.3 mmol/L (21-32) 12/01/19 03:59 BUN 14 mg/dL (7-18) 12/01/19 03:59 Creatinine 0.94 mg/dL (0.70-1.30) 12/01/19 03:59 Est GFR (MDRD) Af Amer > 60 (>60) 12/01/19 03:59 Est GFR (MDRD) Non-Af > 60 (>60) 12/01/19 03:59 Glucose 119 mg/dL (65-99) H 12/01/19 03:59 POC Glucose (mg/dL) 102 mg/dL (65-99) H 12/01/19 12:01 Hemoglobin A1c 6.4 % 11/28/19 05:37 Calcium 8.9 mg/dL (8.5-10.1) 12/01/19 03:59 Corrected Calcium 10.6 mg/dL (8.5-10.1) H 11/28/19 05:37 Magnesium 2.0 mg/dL (1.7-2.9) 11/27/19 19:57 Total Bilirubin 0.50 mg/dL (0.2-1.0) 11/28/19 05:37 AST 20 Units/L (15-37) 11/28/19 05:37 ALT 28 Units/L (12-78) 11/28/19 05:37 Alkaline Phosphatase 78 Units/L (46-116) 11/28/19 05:37 Total Protein 6.9 g/dL (6.4-8.2) 11/28/19 05:37 Albumin 2.2 g/dL (3.4-5.0) L 11/28/19 05:37 Globulin 4.7 g/dL (2.5-4.5) H 11/28/19 05:37 Albumin/Globulin Ratio 0.5 Ratio (1.1-2.1) L 11/28/19 05:37 Vancomycin Trough 6.1 ug/mL (15-20) L 11/29/19 20:34 Random Vancomycin 9.0 ug/mL 12/01/19 10:40 Tissue Pathology To follow 11/28/19 10:53 Miscellaneous Test Covid 19 11/27/19 21:09 Plan (1) Cellulitis of hand, left: Status: Acute Plan: S/p debridement (11/27) Wound Culture:+MRSA IV Vancomycin (2) Type 2 diabetes mellitus: Status: Acute Plan: Meds:Metformin A1c:6.4
--- NOTE | 2019-12-01 13:56 | DR.PROGNOT ---
Hospital Progress Notes - Progress Note for Day of: Progress Note Date: 12/01/19 - Chief Complaint Chief Complaint: moderate pain Lt hand . still having moderate drainage . C&S showed MRSA . BS is controlled and Pt is afebrile . - Past Medical Family Social History Past Med/Fam/Surg Hx: No changes since H&P Allergies: Allergies No Known Drug Allergies Allergy (Verified 11/24/19 06:23) - Review Of Systems ROS: No change since H&P - Vital Signs Vital Signs: Temperature 97.9 F Pulse Rate [Right Radial] 73 Pulse Rate 70 Respiratory Rate 18 Blood Pressure [Right Arm] 166/78 Blood Pressure 153/86 O2 Sat by Pulse Oximetry 98 - Physical Exam Oriented: Normal Eyes: Normal Ear: Normal Cardiovascular: Normal GI:Auscultation: Normal GI:Palpation: Normal GI: Tenderness: Normal Skin: Wound (dressing was changed and all packings were removed ..still with severe infection and having multiple draining sub cutaneous tracts ) Musculoskeletal: Hand (Left hand) Psychiatric: Normal Mood Description: Calm Speech Pattern: Clear, Appropriate - Laboratory and Diagnostics Result Diagrams: 12/01/19 03:59 12/01/19 03:59 Labs: 11/27/19 21:15 Hand - Left Gram Stain - Final 11/27/19 21:15 Hand - Left Wound Culture - Final Methicillin Resis Staph Aureus Laboratory WBC 7.5 X10^3/uL (3.6-10.0) 12/01/19 03:59 RBC 4.74 X10^6/uL (4.7-6.0) 12/01/19 03:59 Hgb 13.5 g/dL (13.5-18.0) 12/01/19 03:59 Hct 39.3 % (42.0-54.0) L 12/01/19 03:59 MCV 83.1 fL (80.0-100.0) 12/01/19 03:59 MCH 28.5 pg (27.0-34.0) 12/01/19 03:59 MCHC 34.3 g/dL (33.0-35.0) 12/01/19 03:59 RDW 14.8 % (11.6-16.5) 12/01/19 03:59 Plt Count 382 X10^3/uL (150.0-450.0) 12/01/19 03:59 MPV 7.3 fL (7.4-11.0) L 12/01/19 03:59 Neut % (Auto) 65.2 % (42.0-75.0) 12/01/19 03:59 Lymph % (Auto) 23.0 % (21.0-51.0) 12/01/19 03:59 [place] % (Auto) 8.5 % (0.0-13.0) 12/01/19 03:59 Eos % (Auto) 2.5 % (0.9-2.9) 12/01/19 03:59 Baso % (Auto) 0.8 % (0.2-1.0) 12/01/19 03:59 Neut # (Auto) 4.9 x10^3/uL (2.2-4.8) H 12/01/19 03:59 Lymph # (Auto) 1.7 X10^3/uL (1.3-2.9) 12/01/19 03:59 [place] # (Auto) 0.6 x10^3/uL (0.3-0.8) 12/01/19 03:59 Eos # (Auto) 0.2 x10^3/uL (0.0-0.2) 12/01/19 03:59 Baso # (Auto) 0.1 X10^3/uL (0.0-0.1) 12/01/19 03:59 Absolute Nucleated RBC 0.1 /100WBC 12/01/19 03:59 Sodium 136 mmol/L (136-145) 12/01/19 03:59 Corrected Sodium 136 mmol/L (136-145) 12/01/19 03:59 Potassium 3.8 mmol/L (3.5-5.1) 12/01/19 03:59 Chloride 103 mmol/L (98-107) 12/01/19 03:59 Carbon Dioxide 24.3 mmol/L (21-32) 12/01/19 03:59 BUN 14 mg/dL (7-18) 12/01/19 03:59 Creatinine 0.94 mg/dL (0.70-1.30) 12/01/19 03:59 Est GFR (MDRD) Af Amer > 60 (>60) 12/01/19 03:59 Est GFR (MDRD) Non-Af > 60 (>60) 12/01/19 03:59 Glucose 119 mg/dL (65-99) H 12/01/19 03:59 POC Glucose (mg/dL) 102 mg/dL (65-99) H 12/01/19 12:01 Hemoglobin A1c 6.4 % 11/28/19 05:37 Calcium 8.9 mg/dL (8.5-10.1) 12/01/19 03:59 Corrected Calcium 10.6 mg/dL (8.5-10.1) H 11/28/19 05:37 Magnesium 2.0 mg/dL (1.7-2.9) 11/27/19 19:57 Total Bilirubin 0.50 mg/dL (0.2-1.0) 11/28/19 05:37 AST 20 Units/L (15-37) 11/28/19 05:37 ALT 28 Units/L (12-78) 11/28/19 05:37 Alkaline Phosphatase 78 Units/L (46-116) 11/28/19 05:37 Total Protein 6.9 g/dL (6.4-8.2) 11/28/19 05:37 Albumin 2.2 g/dL (3.4-5.0) L 11/28/19 05:37 Globulin 4.7 g/dL (2.5-4.5) H 11/28/19 05:37 Albumin/Globulin Ratio 0.5 Ratio (1.1-2.1) L 11/28/19 05:37 Vancomycin Trough 6.1 ug/mL (15-20) L 11/29/19 20:34 Random Vancomycin 9.0 ug/mL 12/01/19 10:40 Tissue Pathology To follow 11/28/19 10:53 Miscellaneous Test Covid 19 11/27/19 21:09 - Assessment and Plan 1: multiple Lt hand abscesses positive for MRSA .. S/P debridement and drainage with packing . DM . same IV Vancomycine and local care .. hand elevation . needs IV vancomycin for two days then home Cipro for 10 days at least . to soak with Saline and H2O2 , apply Bactroban and follow in one week . - Problem Patient Problems: Patient Problems Type 2 diabetes mellitus (Acute) E11.9 Cellulitis of hand, left (Acute) L03.114
[2019-12-01] MEDS: VANCOMYCIN HCL 1 G in D5W 250 ML IV 250 ML IV SCH ×2 (14:21→21:09)
[2019-12-02] MEDS: VANCOMYCIN HCL 1 G in D5W 250 ML IV 250 ML IV SCH ×3 (05:18→21:00)
[2019-12-02] MEDS ORDERED: GLUCOPHAGE ONE (07:20)
[2019-12-02] MEDS ORDERED: HumuLIN R SC PRN (07:56)
[2019-12-02] MEDS: PERCOCET TAB 5/325 MG PO PRN ×2 (08:40→20:51)
[2019-12-02] MEDS: PriLOSEC PO SCH (08:40)
[2019-12-02] MEDS: HYDROGEN PEROXIDE 3% TOP SCH (08:40)
[2019-12-02] MEDS: GLUCOPHAGE PO SCH (08:40)
[2019-12-02] MEDS: BACTROBAN CREAM TOP SCH (09:30)
--- NOTE | 2019-12-02 09:57 | DR.PROGNOT ---
Hospital Progress Notes - Progress Note for Day of: Progress Note Date: 12/02/19 - Chief Complaint Chief Complaint: moderate pain Lt hand . still having moderate drainage . C&S showed MRSA . BS is controlled and Pt is afebrile . - Past Medical Family Social History Past Med/Fam/Surg Hx: No changes since H&P Allergies: Allergies No Known Drug Allergies Allergy (Verified 11/24/19 06:23) - Review Of Systems ROS: No change since H&P - Vital Signs Vital Signs: Temperature 98.3 F Pulse Rate [Right Radial] 65 Pulse Rate 70 Respiratory Rate 20 Blood Pressure [Right Arm] 131/75 Blood Pressure 153/86 O2 Sat by Pulse Oximetry 96 - Physical Exam Oriented: Normal Eyes: Normal Ear: Normal Cardiovascular: Normal GI:Auscultation: Normal GI:Palpation: Normal GI: Tenderness: Normal Skin: Wound (improving with less drainage .. started to granulate .. ormal ROM of all fingers and wrist .) Musculoskeletal: Hand (Left hand) Psychiatric: Normal Mood Description: Calm Speech Pattern: Clear, Appropriate - Laboratory and Diagnostics Result Diagrams: 12/01/19 03:59 12/01/19 03:59 Labs: 11/27/19 21:15 Hand - Left Gram Stain - Final 11/27/19 21:15 Hand - Left Wound Culture - Final Methicillin Resis Staph Aureus Laboratory WBC 7.5 X10^3/uL (3.6-10.0) 12/01/19 03:59 RBC 4.74 X10^6/uL (4.7-6.0) 12/01/19 03:59 Hgb 13.5 g/dL (13.5-18.0) 12/01/19 03:59 Hct 39.3 % (42.0-54.0) L 12/01/19 03:59 MCV 83.1 fL (80.0-100.0) 12/01/19 03:59 MCH 28.5 pg (27.0-34.0) 12/01/19 03:59 MCHC 34.3 g/dL (33.0-35.0) 12/01/19 03:59 RDW 14.8 % (11.6-16.5) 12/01/19 03:59 Plt Count 382 X10^3/uL (150.0-450.0) 12/01/19 03:59 MPV 7.3 fL (7.4-11.0) L 12/01/19 03:59 Neut % (Auto) 65.2 % (42.0-75.0) 12/01/19 03:59 Lymph % (Auto) 23.0 % (21.0-51.0) 12/01/19 03:59 [place] % (Auto) 8.5 % (0.0-13.0) 12/01/19 03:59 Eos % (Auto) 2.5 % (0.9-2.9) 12/01/19 03:59 Baso % (Auto) 0.8 % (0.2-1.0) 12/01/19 03:59 Neut # (Auto) 4.9 x10^3/uL (2.2-4.8) H 12/01/19 03:59 Lymph # (Auto) 1.7 X10^3/uL (1.3-2.9) 12/01/19 03:59 [place] # (Auto) 0.6 x10^3/uL (0.3-0.8) 12/01/19 03:59 Eos # (Auto) 0.2 x10^3/uL (0.0-0.2) 12/01/19 03:59 Baso # (Auto) 0.1 X10^3/uL (0.0-0.1) 12/01/19 03:59 Absolute Nucleated RBC 0.1 /100WBC 12/01/19 03:59 Sodium 136 mmol/L (136-145) 12/01/19 03:59 Corrected Sodium 136 mmol/L (136-145) 12/01/19 03:59 Potassium 3.8 mmol/L (3.5-5.1) 12/01/19 03:59 Chloride 103 mmol/L (98-107) 12/01/19 03:59 Carbon Dioxide 24.3 mmol/L (21-32) 12/01/19 03:59 BUN 14 mg/dL (7-18) 12/01/19 03:59 Creatinine 0.94 mg/dL (0.70-1.30) 12/01/19 03:59 Est GFR (MDRD) Af Amer > 60 (>60) 12/01/19 03:59 Est GFR (MDRD) Non-Af > 60 (>60) 12/01/19 03:59 Glucose 119 mg/dL (65-99) H 12/01/19 03:59 POC Glucose (mg/dL) 149 mg/dL (65-99) H 12/02/19 05:46 Hemoglobin A1c 6.4 % 11/28/19 05:37 Calcium 8.9 mg/dL (8.5-10.1) 12/01/19 03:59 Corrected Calcium 10.6 mg/dL (8.5-10.1) H 11/28/19 05:37 Magnesium 2.0 mg/dL (1.7-2.9) 11/27/19 19:57 Total Bilirubin 0.50 mg/dL (0.2-1.0) 11/28/19 05:37 AST 20 Units/L (15-37) 11/28/19 05:37 ALT 28 Units/L (12-78) 11/28/19 05:37 Alkaline Phosphatase 78 Units/L (46-116) 11/28/19 05:37 Total Protein 6.9 g/dL (6.4-8.2) 11/28/19 05:37 Albumin 2.2 g/dL (3.4-5.0) L 11/28/19 05:37 Globulin 4.7 g/dL (2.5-4.5) H 11/28/19 05:37 Albumin/Globulin Ratio 0.5 Ratio (1.1-2.1) L 11/28/19 05:37 Vancomycin Trough 6.1 ug/mL (15-20) L 11/29/19 20:34 Random Vancomycin 9.0 ug/mL 12/01/19 10:40 Tissue Pathology To follow 11/28/19 10:53 Miscellaneous Test Covid 19 11/27/19 21:09 - Assessment and Plan 1: multiple Lt hand abscesses positive for MRSA .. S/P debridement and drainage with packing . DM . same IV Vancomycine and local care .. to soak with Saline and H2O2 , apply Bactroban and follow in one week . will d/c in am on oral Cipro . maybe discharge in am with office F/U in one week . VNA to soak the hand in saline and H2O2 , Bacrtoban cream . - Problem Patient Problems: Patient Problems Type 2 diabetes mellitus (Acute) E11.9 Cellulitis of hand, left (Acute) L03.114
--- NOTE | 2019-12-02 10:43 | PCM.PROG ---
Progress Note Progress Note for Day of Date of Exam: 12/02/19 Subjective Subjective: Pt is a 69 y/o m pmhx DMT2, GERD, admitted for left hand cellulitis and debridement. His hand is improving. Surgery recs another day of IV Vancomycin, wound care to soak with Saline and H2O2 , apply Bactroban, and follow in one week. He is to be discharged with 10 day course of ciprofloxacin to complete. Medically stable. Will sign off. Past Medical Family Social History Past Med/Fam/Surg Hx: No changes since H&P Allergies: Allergies No Known Drug Allergies Allergy (Verified 11/24/19 06:23) Review of Systems ROS: No change since H&P Vital Signs and I&O's Vital Signs: Temperature 98.3 F Pulse Rate [Right Radial] 65 Pulse Rate 70 Respiratory Rate 20 Blood Pressure [Right Arm] 131/75 Blood Pressure 153/86 O2 Sat by Pulse Oximetry 96 Intake and Output: Intake & Output 11/29/19 11/30/19 12/01/19 12/02/19 23:59 23:59 23:59 23:59 Intake Total 2330 / 2330 1390 / 1390 1290 / 1290 760 / 760 Balance 2330 / 2330 1390 / 1390 1290 / 1290 760 / 760 Physical Exam Oriented: Normal Eyes: Normal Ear: Normal Cardiovascular: Normal Auscultation: Bowel Sounds: Normal Tenderness: Normal Skin: Wound (improving with less drainage .. started to granulate .. ormal ROM of all fingers and wrist .) Musculoskeletal: Hand (Left hand) Psychiatric: Normal Mood Description: Calm Speech Pattern: Clear and Appropriate Laboratory and Diagnostics Result Diagrams: 12/01/19 03:59 12/01/19 03:59 Labs: 11/27/19 21:15 Hand - Left Gram Stain - Final 11/27/19 21:15 Hand - Left Wound Culture - Final Methicillin Resis Staph Aureus Laboratory WBC 7.5 X10^3/uL (3.6-10.0) 12/01/19 03:59 RBC 4.74 X10^6/uL (4.7-6.0) 12/01/19 03:59 Hgb 13.5 g/dL (13.5-18.0) 12/01/19 03:59 Hct 39.3 % (42.0-54.0) L 12/01/19 03:59 MCV 83.1 fL (80.0-100.0) 12/01/19 03:59 MCH 28.5 pg (27.0-34.0) 12/01/19 03:59 MCHC 34.3 g/dL (33.0-35.0) 12/01/19 03:59 RDW 14.8 % (11.6-16.5) 12/01/19 03:59 Plt Count 382 X10^3/uL (150.0-450.0) 12/01/19 03:59 MPV 7.3 fL (7.4-11.0) L 12/01/19 03:59 Neut % (Auto) 65.2 % (42.0-75.0) 12/01/19 03:59 Lymph % (Auto) 23.0 % (21.0-51.0) 12/01/19 03:59 [place] % (Auto) 8.5 % (0.0-13.0) 12/01/19 03:59 Eos % (Auto) 2.5 % (0.9-2.9) 12/01/19 03:59 Baso % (Auto) 0.8 % (0.2-1.0) 12/01/19 03:59 Neut # (Auto) 4.9 x10^3/uL (2.2-4.8) H 12/01/19 03:59 Lymph # (Auto) 1.7 X10^3/uL (1.3-2.9) 12/01/19 03:59 [place] # (Auto) 0.6 x10^3/uL (0.3-0.8) 12/01/19 03:59 Eos # (Auto) 0.2 x10^3/uL (0.0-0.2) 12/01/19 03:59 Baso # (Auto) 0.1 X10^3/uL (0.0-0.1) 12/01/19 03:59 Absolute Nucleated RBC 0.1 /100WBC 12/01/19 03:59 Sodium 136 mmol/L (136-145) 12/01/19 03:59 Corrected Sodium 136 mmol/L (136-145) 12/01/19 03:59 Potassium 3.8 mmol/L (3.5-5.1) 12/01/19 03:59 Chloride 103 mmol/L (98-107) 12/01/19 03:59 Carbon Dioxide 24.3 mmol/L (21-32) 12/01/19 03:59 BUN 14 mg/dL (7-18) 12/01/19 03:59 Creatinine 0.94 mg/dL (0.70-1.30) 12/01/19 03:59 Est GFR (MDRD) Af Amer > 60 (>60) 12/01/19 03:59 Est GFR (MDRD) Non-Af > 60 (>60) 12/01/19 03:59 Glucose 119 mg/dL (65-99) H 12/01/19 03:59 POC Glucose (mg/dL) 149 mg/dL (65-99) H 12/02/19 05:46 Hemoglobin A1c 6.4 % 11/28/19 05:37 Calcium 8.9 mg/dL (8.5-10.1) 12/01/19 03:59 Corrected Calcium 10.6 mg/dL (8.5-10.1) H 11/28/19 05:37 Magnesium 2.0 mg/dL (1.7-2.9) 11/27/19 19:57 Total Bilirubin 0.50 mg/dL (0.2-1.0) 11/28/19 05:37 AST 20 Units/L (15-37) 11/28/19 05:37 ALT 28 Units/L (12-78) 11/28/19 05:37 Alkaline Phosphatase 78 Units/L (46-116) 11/28/19 05:37 Total Protein 6.9 g/dL (6.4-8.2) 11/28/19 05:37 Albumin 2.2 g/dL (3.4-5.0) L 11/28/19 05:37 Globulin 4.7 g/dL (2.5-4.5) H 11/28/19 05:37 Albumin/Globulin Ratio 0.5 Ratio (1.1-2.1) L 11/28/19 05:37 Vancomycin Trough 6.1 ug/mL (15-20) L 11/29/19 20:34 Random Vancomycin 9.0 ug/mL 12/01/19 10:40 Tissue Pathology To follow 11/28/19 10:53 Miscellaneous Test Covid 19 11/27/19 21:09 Plan (1) Cellulitis of hand, left: Status: Acute Plan: S/p debridement (11/27) Wound Culture:+MRSA IV Vancomycin (2) Type 2 diabetes mellitus: Status: Acute Plan: Meds:Metformin, SSI A1c:6.4
[2019-12-02] MEDS ORDERED: PHARMACY COMMENT IV NR (13:30)
[2019-12-02 13:35] LABS: CREATININE 1.1 mg/dL (0.70-1.30); VANCOMYCIN,TROUGH 11.1 ug/mL (15-20)
[2019-12-03] MEDS: VANCOMYCIN HCL 1 G in D5W 250 ML IV 250 ML IV SCH (05:36)
[2019-12-03] MEDS ORDERED: GLUCOPHAGE ONE (09:09)
[2019-12-03] MEDS: PriLOSEC PO SCH (09:12)
[2019-12-03] MEDS: PERCOCET TAB 5/325 MG PO PRN (09:12)
[2019-12-03] MEDS: GLUCOPHAGE PO SCH (09:13)
[2019-12-03] MEDS: HYDROGEN PEROXIDE 3% TOP SCH (10:14)
[2019-12-03 10:23] VITALS: BP 129/73
[2019-12-03] MEDS ORDERED: STERILE WATER IRRIGATION IR ONE (10:31)
[2019-12-03] MEDS: BACTROBAN CREAM TOP SCH (10:44)
== END 2019-12-03 11:50 | disposition home health service (06) | DRG 580 ==
LOC: MED/SURG 17:11
PROVIDERS: ADMIT Surgery; ATTEND Surgery
DX: L02.512 Cutaneous abscess of left hand; S60.562D Insect bite (nonvenomous) of left hand, subsequent encounter; E11.65 Type 2 diabetes mellitus with hyperglycemia; K21.9 Gastro-esophageal reflux disease without esophagitis; B95.62 Methicillin resistant Staphylococcus aureus infection as the cause of diseases classified elsewhere; Z11.59 Encounter for screening for other viral diseases; R94.31 Abnormal electrocardiogram [ECG] [EKG]; W57.XXXD Bitten or stung by nonvenomous insect and other nonvenomous arthropods, subsequent encounter; L03.114 Cellulitis of left upper limb
CPT/HCPCS: 36415; 71010; 71045; 80048; 80053; 80202; 82565; 83036; 83735; 85025; 87070; 87075; 87077; 87186; 87205; 93005; A4217; A4222; J2250; J2405; J2704; J3010; J3370; J7030; J7050; J7060; J7120